=== PATIENT | female | born 1990 | race Caucasian/White ===

== ENCOUNTER 2017-04-22 17:32 | Emergency (ER) | payer OTHER ==
--- NOTE | 2017-04-22 18:54 | RAD ---
EXAM DESCRIPTION: Lumbar Spine 3 Views CLINICAL HISTORY: reports acute near paralysis bilat le COMPARISON: None FINDINGS: 3 views were submitted. No fracture or dislocation is identified. Bone marrow attenuation is unremarkable. No radiopaque foreign body is identified. IMPRESSION: No acute fracture or dislocation. Electronically signed by: Brayden Avelar 04/22/2017 6:53 PM [facility]
--- NOTE | 2017-04-22 20:47 | CT ---
PROCEDURE: Lumbar Spine CLINICAL HISTORY: 26 years ,Female ,acute lower extremity weakness bilaterally COMPARISON: None. TECHNIQUE: Contiguous axial images obtained through the lumbar spine without IV contrast. Coronal and sagittal reformatted images obtained. This exam was performed according to our department optimization program which includes automated exposure control, adjustment of the mA and/or kv according to patient size and/or use of iterative reconstruction technique. FINDINGS: There is normal alignment and lordosis. There is partial lumbarization of the level that will be called S1. Incomplete ossification of transverse processes at the level that will be called L1. Spina bifida occulta at the S1 level. Mild bulging of the disc at L4-5 and L5-S1 without central canal or neural foraminal stenosis. No focal HNP is noted. No evidence of acute fracture or subluxation. Schmorl's nodes at multiple levels. IMPRESSION: No acute fracture or subluxation No focal HNP or evidence to suggest central canal or neural foraminal narrowing. Electronically signed by: Caren Cowart 04/22/2017 8:45 PM [facility]
--- NOTE | 2017-04-22 21:56 | ED.PDOC ---
History of Present Illness - General Chief Complaint: General Stated Complaint: numbness from waist down Time Seen by Provider: 04/22/17 17:43 Source: patient, family Exam Limitations: no limitations - History of Present Illness Initial Comments: the patient is a 26-year-old female presenting to the emergency room by EMS secondary to acute onset bilateral lower extremity weakness. 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 She apparently sat there for 15 or 20 minutes and then felt a pain and tingling in her back after which she was unable to move her legs or stand up. No incontinence. No loss of sensation. Upon arrival here she will not move her legs. She reports that sensation to pain, temperature and position are all intact. Again no incontinence. She is able to sit up by herself with the hand rails down. There is no postural instability. There is no altered mental status. The patient seems very unconcerned and is very cordial. It is an odd affect for the presenting symptoms. She reports some pain to palpation over the spinous process of L3. There is no bruising or deformity. She reports that she has had long-standing neck and low back pain. She reports having had an MRI a few years ago showing some bulging disks. She reports several times over the past couple of years she is woke up unable to move the entirety of her body or just parts of her body. There is no pallor to extremities. Pulses are good. The patient is able to keep her feet off the floor while rolling in a wheelchair without foot pieces. After approximately 2 hours she starts moving her feet a little bit more but seems unable to move the legs against gravity. No history of any fever. No recent trauma. Examination of the lower extremity shows a negative Babinski sign. She has 2 beat clonus bilaterally. She has bilateral 1+ patellar reflexes. She has bilateral 1+ Achilles reflexes. No abnormal fasciculations of the musculature. No wasting of the musculature. No incontinence. No evidence of any sensory deficit. past medical history includes chronic neck and low back pain for which he intermittently takes morphine. Generalized anxiety as well as depression. Gastroesophageal reflux disease. Timing/Duration: 1/2 hour Severity: severe Improving Factors: nothing Worsening Factors: nothing Associated Symptoms: denies symptoms Allergies/Adverse Reactions: Allergies Hydrocodone Allergy (Verified 04/22/17 17:58) Vancomycin Allergy (Verified 04/22/17 17:58) Home Medications: Ambulatory Orders ALPRAZolam [Xanax] 0.5 mg PO BID 04/22/17 Morphine Sulfate [Morphine Sulfate ER] 15 mg PO Q8H PRN 04/22/17 Omeprazole 40 mg PO BID 04/22/17 Sucralfate Tab [Carafate Tab] 1 gm PO BID 04/22/17 Review of Systems - Review of Systems Constitutional: States: no symptoms reported EENTM: States: no symptoms reported Respiratory: States: no symptoms reported Cardiology: States: no symptoms reported Gastrointestinal/Abdominal: States: no symptoms reported Genitourinary: States: no symptoms reported Musculoskeletal: States: see HPI Skin: States: no symptoms reported Neurological: States: see HPI Endocrine: States: no symptoms reported All other Systems: No Change from Baseline Past Medical History (General) - Patient Medical History Hx Congestive Heart Failure: No Hx Diabetes: No Surgical History: appendectomy, cholecystectomy - Vaccination History Hx Influenza Vaccination: No - Social History Hx Tobacco Use: Yes - Female History Patient is a Female of Child Bearing Age (10 -59 yrs old): Yes Family Medical History - Family History Mother Family History: Unknown Living Status: Unknown Physical Exam - Physical Exam General Appearance: Alert, Comfortable, No apparent distress, Playful Eye Exam: bilateral normal Ears, Nose, Throat: hearing grossly normal, normal ENT inspection - very poor dentition Neck: non-tender, full range of motion, supple Respiratory: lungs clear, normal breath sounds, no respiratory distress, no accessory muscle use Cardiovascular/Chest: normal peripheral pulses, regular rate, rhythm, no edema Peripheral Pulses: radial,right: 2+, radial,left: 2+, dorsalis pedis,right: 2+, dorsalis pedis,left: 2+, posterior tibialis,right: 2+, posterior tibialis,left: 2+ Gastrointestinal/Abdominal: non tender, soft, other - no deficiency of abdominal musculaturein her torso movements Rectal Exam: other - no incontinence Back Exam: vertebral tenderness - over the spinous process of L3 without any deformity or bruising. Extremity: no pedal edema, no calf tenderness, normal capillary refill, other - see history of present illness Neurologic: plasterer spray gun II-XII nml as tested, alert, normal mood/affect, oriented x 3, other - see history of present illness DTR: 1+: Achilles, left, Achilles, right, Patellar, left, Patellar, right Skin Exam: normal color Comments: Vital Signs - 24 hr 04/22/17 17:53 Temperature 99.3 F Pulse Rate [ 77 Left Brachial] Respiratory 16 Rate Blood Pressure 129/88 [Left Arm] O2 Sat by Pulse 100 Oximetry Progress - Progress Progress: 04/22/17 22:02 the patient's a 26-year-old female presenting due to the complaint of bilateral lower extremity weakness. Imaging and lab work are reassuring. I think that there is a significant possibility that this is hysterical weakness or malingering. I do not however know what secondary gain could be had from this complaint with malingering. the patient is being transferred for neurological evaluation in case there is an underlying pathology I have not found, or not aware of, to explain her symptoms. certainly this would be an uncommon presentation for a transverse myelitis or an acute spinal cord syndrome , at least to my knowledge. Transferring for higher level specialty care. - Results/Orders Results/Orders: x-ray of the lumbar spine shows no overt acute pathology. CT scan of the lumbar spine shows long-standing spina bifida at S1. Mild disc bulge at L4-L5 as well as L5-S1 but no canal stenosis. No herniated nucleus pulposus. No fracture or subluxation. Schmorl's nodes noted at multiple levels. CT scan of the head shows no acute pathology. Laboratory Results - last 24 hr 04/22/17 04/22/17 04/22/17 18:29 18:29 18:29 WBC 7.2 RBC 4.81 Hgb 13.5 Hct 39.7 MCV 82.5 MCH 28.0 MCHC 33.9 RDW 13.7 Plt Count 217 MPV 8.2 Absolute Neuts (auto) 3.90 Absolute Lymphs (auto) 2.60 Absolute Monos (auto) 0.50 Absolute Eos (auto) 0.10 Absolute Basos (auto) 0.10 Neutrophils % 54.5 Lymphocytes % 36.0 Monocytes % 7.1 Eosinophils % 1.2 Basophils % 1.2 PT 12.2 INR 1.080 PTT (SP) 28.7 Sodium 137 Potassium 4.1 Chloride 104 Carbon Dioxide 27 Anion Gap 10.1 L BUN 8 Creatinine 0.73 BUN/Creatinine Ratio 11.0 Random Glucose 95 Serum Osmolality 272.0 L Calcium 8.9 Magnesium 1.7 L Total Bilirubin 0.2 AST 23 ALT 28 Alkaline Phosphatase 71 Creatine Kinase 47 CK-MB (CK-2) 0.6 CK-MB (CK-2) % Not Reportable Troponin I < 0.02 Serum Total Protein 7.4 Albumin 3.8 Globulin 3.6 H Albumin/Globulin Ratio 1.1 Serum HCG, Qual 04/22/17 18:29 WBC RBC Hgb Hct MCV MCH MCHC RDW Plt Count MPV Absolute Neuts (auto) Absolute Lymphs (auto) Absolute Monos (auto) Absolute Eos (auto) Absolute Basos (auto) Neutrophils % Lymphocytes % Monocytes % Eosinophils % Basophils % PT INR PTT (SP) Sodium Potassium Chloride Carbon Dioxide Anion Gap BUN Creatinine BUN/Creatinine Ratio Random Glucose Serum Osmolality Calcium Magnesium Total Bilirubin AST ALT Alkaline Phosphatase Creatine Kinase CK-MB (CK-2) CK-MB (CK-2) % Troponin I Serum Total Protein Albumin Globulin Albumin/Globulin Ratio Serum HCG, Qual Negative Departure - Departure Clinical Impression: Weakness of both lower extremities Disposition: Transfer to Hospital Home Medications: Ambulatory Orders ALPRAZolam [Xanax] 0.5 mg PO BID 04/22/17 Morphine Sulfate [Morphine Sulfate ER] 15 mg PO Q8H PRN 04/22/17 Omeprazole 40 mg PO BID 04/22/17 Sucralfate Tab [Carafate Tab] 1 gm PO BID 04/22/17 Transfer to Outside Facility - Transfer Information Accepting Provider:: dr orona Accepting Facility: [facility] Reason for Transfer: required specialist not available
--- NOTE | 2017-04-22 22:19 | CT ---
EXAM DESCRIPTION: Head CLINICAL HISTORY: bilat acute le weakness COMPARISON: None available TECHNIQUE: Axial CT of the head obtained from the skull apex to the skull base without contrast. FINDINGS: No acute intracranial hemorrhage identified. No mass, mass effect, shift of the midline, abnormal extra-axial fluid collection or CT evidence of acute ischemic change identified. The ventricular system is unremarkable. No acute abnormalities of the supratentorial white matter, basal ganglia, cerebellum, or brainstem. Opacification of the bilateral maxillary sinuses, compatible with paranasal sinus disease. No skull fracture identified. Visualized orbits and globes are unremarkable. DLP:773.97 mGy-cm IMPRESSION: 1. No acute intracranial abnormality by CT criteria. This exam was performed according to our departmental dose-optimization program, which includes automated exposure control, adjustment of the mA and/or kV according to patient size and/or use of iterative reconstruction technique. Electronically signed by: Eulogio Abarca 04/22/2017 10:18 PM [employer]
[2017-04-22] MEDS ORDERED: KETOROLAC TROMETHAMINE INJ 30 MG/ML VIAL IV ONE (22:29)
[2017-04-22 23:45] VITALS: BP 142/72; TEMP 98.2; O2SAT 97
== END 2017-04-22 23:10 | disposition short-term general hospital (02) ==
LOC: EDBD 17:32 → ER 17:32
DX: M62.81 Muscle weakness (generalized) (principal); G89.29 Other chronic pain; M54.5 Low back pain; M54.2 Cervicalgia; F41.8 Other specified anxiety disorders; Q05.8 Sacral spina bifida without hydrocephalus
CPT/HCPCS: 36415; 70450; 72100; 72131; 80053; 82550; 82553; 83735; 84484; 84703; 85025; 85610; 85730; J1885